=== PATIENT | male | born 1965 | race Caucasian/White ===

== ENCOUNTER 2016-09-29 07:23 | Emergency (ER) | payer SELFPAY ==
[~2016-09-29] VITALS: Ht 182.9 cm; Wt 84.0 kg
[~2016-09-29 07:23] MED LIST: ALPR1TAB2
[2016-09-29 07:40] VITALS: BP 112/78
== END 2016-09-29 09:09 | disposition home or self-care (01) ==
LOC: ER 08:54
DX: B86 Scabies (principal); L03.114 Cellulitis of left upper limb; L03.113 Cellulitis of right upper limb; L03.116 Cellulitis of left lower limb; L03.115 Cellulitis of right lower limb
CPT/HCPCS: 99283